=== PATIENT | male | born 1975 | race Caucasian/White ===

== ENCOUNTER 2017-10-27 15:16 | Observation (INO) | payer SELFPAY ==
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
[2017-10-27] MEDS ORDERED: Morphine 4 MG/ML Carpuject ONE (16:07)
[2017-10-27] MEDS ORDERED: Adacel (T-DAP) 0.5 ML VIAL ONE (16:07)
[2017-10-27] MEDS ORDERED: Ondansetron HCl/PF 4 MG/2 ML Vial ONE (16:07)
[2017-10-27 16:17] LABS: #Eosinphils 0.3 thou/uL (0.0-0.7); #Lymphocytes 1.4 thou/uL (1.20-3.40); #Monocytes 0.5 thou/uL (0.11-0.59); #Neutrophils 6.1 thou/uL (1.40-6.50); %Basophils 0.6 % (0.0-1.0); %Eosinophils 3.6 % (0.0-10.0); %Lymphocytes 16.6 % (21.0-51.0); %Monocytes 6.1 % (0.0-10.0); %Neutrophils 73.2 % (42.0-75.0); Hemoglobin 14.3 g/dL (14.0-18.0); Mean Corpuscular HGB CONC 32.9 g/dL (32.0-36.0); Mean Corpuscular Hemoglobin 30.3 pg (27.0-31.0); Mean Corpuscular Volume 91.9 fl (80.0-94.0); Mean Platelet Volume 8.5 fL (7.4-10.4); Platelet Count 207 thou/uL (130-400); RBC Distribution Width 11.9 % (11.5-14.5); Red Blood Cell (RBC) Count 4.71 mill/uL (4.70-6.10); White Blood Cell (WBC) Count 8.4 thou/uL (4.8-10.8)
[2017-10-27 16:20] LABS: Actual Bicarbonate (HCO3a) 24.7 mEq/L (22-26); Base Excess (BEa) 0.1 mEq/L (0 (+/-) 2.5); Hematocrit-ABG 40.9 % (42.0-52.0); Hemoglobin (Hb) 14.1 g/dL (14.0-18.0); pH, Arterial 7.41 (7.35-7.45)
[2017-10-27 16:21] LABS: Analyzer IN Cardio ER; Calcium, Ionized 1.2 mmol/L (1.12-1.30); Puncture Site RRA
[2017-10-27 16:34] LABS: Anion Gap 14 mmol/L (10-20); BUN (Urea Nitrogen) 9 mg/dL (8.9-20.6); Calc. Creatinine Clearance 0 mL/min (70-130); Calcium 8.5 mg/dL (7.8-10.44); Carbon Dioxide 23 mmol/L (22-29); Chloride 108 mmol/L (98-107); Estimated GFR-MDRD 84; Glucose 83 mg/dL (70-105); Sodium 141 mmol/L (136-145)
[2017-10-27] MEDS ORDERED: hydrALAZINE 20 MG/ML VIAL SLOW IVP PRN (18:09)
[2017-10-27] MEDS ORDERED: Ondansetron ODT 4 MG TAB PO PRN (18:09)
[2017-10-27] MEDS ORDERED: traMADol HCl 50 MG TAB PO PRN ×2 (18:09)
[2017-10-27] MEDS ORDERED: Dextrose 5% in Water 1,000 ML IV PRN (18:09)
[2017-10-27] MEDS ORDERED: Cyclobenzaprine 10 MG TAB PO PRN (18:09)
[2017-10-27] MEDS ORDERED: Ondansetron HCl/PF 4 MG/2 ML Vial IVP PRN (18:09)
[2017-10-27] MEDS ORDERED: Promethazine HCl 25 MG/ML VIAL IM PRN ×2 (18:09)
[2017-10-27] MEDS ORDERED: Dextrose 50% Abboject 50 ML SYRINGE SLOW IVP PRN (18:09)
[2017-10-27 19:23] VITALS: BMI 28.6
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
[2017-10-27] MEDS: Acetaminophen 325 MG TAB PO SCH (21:14)
[2017-10-27] MEDS: Ibuprofen 800 MG TAB PO SCH (21:15)
[2017-10-27] MEDS: Famotidine 20 MG TAB PO SCH (21:15)
[2017-10-27] MEDS: Silver Sulfadiazine 1% Cream 50 GM JAR TOP SCH (21:16)
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
[2017-10-28] MEDS: Acetaminophen 325 MG TAB PO SCH ×3 (00:23→09:23)
[2017-10-28 04:28] VITALS: TEMP 97.9
[2017-10-28] MEDS: Ibuprofen 800 MG TAB PO SCH (05:16)
[2017-10-28 08:51] VITALS: BP 89/63
[2017-10-28] MEDS ORDERED: FLU VACC QS2017-18 36 mo. & older 0.5 ML SYRINGE IM ONE (09:00)
[2017-10-28] MEDS ORDERED: Bacitracin Zinc Ointment 30 gm TUBE TOP SCH (09:00)
[2017-10-28] MEDS: Silver Sulfadiazine 1% Cream 50 GM JAR TOP SCH (09:23)
[2017-10-28] MEDS: Famotidine 20 MG TAB PO SCH (09:23)
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
== END 2017-10-28 11:29 | disposition home or self-care (01) ==
LOC: ERS 15:16 → SURG A 16:33
PROVIDERS: ADMIT Surgery; ATTEND Surgery
DX: T23.022A Burn of unspecified degree of single left finger (nail) except thumb, initial encounter (principal); T31.0 Burns involving less than 10% of body surface; F17.210 Nicotine dependence, cigarettes, uncomplicated; Z90.89 Acquired absence of other organs; Z98.890 Other specified postprocedural states; X08.8XXA Exposure to other specified smoke, fire and flames, initial encounter
CPT/HCPCS: 71045; 80048; 82375; 82805; 85025; 90471; 90682; 90715; 94640; 96361; 96374; 96375; G0008; G0378; J2270; J2405; J7620; Q2036

== ENCOUNTER 2018-06-19 07:28 | Emergency (ER) | payer SELFPAY ==
[2018-06-19 08:34] LABS: #Basophils 0.1 thou/uL (0.0-0.2); #Eosinphils 0.3 thou/uL (0.0-0.7); #Lymphocytes 1.4 thou/uL (1.20-3.40); #Monocytes 0.4 thou/uL (0.11-0.59); %Eosinophils 5.4 % (0.0-10.0); %Lymphocytes 22.6 % (21.0-51.0); %Neutrophils 64.9 % (42.0-75.0); Mean Corpuscular HGB CONC 33.7 g/dL (32.0-36.0); Mean Corpuscular Hemoglobin 31.2 pg (27.0-31.0); Mean Corpuscular Volume 92.8 fL (78.0-98.0); Platelet Count 187 thou/uL (130-400); RBC Distribution Width 11.8 % (11.5-14.5); Red Blood Cell (RBC) Count 5.12 mill/uL (4.70-6.10); White Blood Cell (WBC) Count 6.1 thou/uL (4.8-10.8)
[2018-06-19 08:46] LABS: Albumin 3.8 g/dL (3.5-5.0); Anion Gap 10 mmol/L (10-20); BUN (Urea Nitrogen) 13 mg/dL (8.9-20.6); Bilirubin, Total 0.3 mg/dL (0.2-1.2); Calc. Creatinine Clearance 0 mL/min (70-130); Calcium 8.5 mg/dL (7.8-10.44); Carbon Dioxide 24 mmol/L (22-29); Chloride 107 mmol/L (98-107); Estimated GFR-MDRD 87; Globulin 2.8 g/dL (2.4-3.5); Glucose 109 mg/dL (70-105); Protein, Total 6.6 g/dL (6.0-8.3); Sodium 137 mmol/L (136-145)
[2018-06-19 08:47] LABS: ALT (SGPT) 25 U/L (8-55); AST (SGOT) 19 U/L (5-34); Alkaline Phosphatase 65 U/L (40-150)
[2018-06-19] MEDS ORDERED: Ketorolac Tromethamine 30 MG/ML VIAL ONE (08:50)
[2018-06-19] MEDS ORDERED: Ondansetron HCl/PF 4 MG/2 ML Vial ONE (08:50)
[2018-06-19 08:52] LABS: Bilirubin Negative (Negative); Blood, Urine Negative (Negative); Clarity CLEAR (Clear); Glucose, Urine (Dipstick) Negative (Negative); Leukocyte Negative (Negative); Nitrite Negative (Negative); Protein, Urine (Dipstick) Negative (Neg-Trace); Specific Gravity, Urine 1.019 (1.002-1.036); Urobilinogen 0.2 mg/dL (0.2-1.0); pH, Urine 7.5 (5.0-9.0)
[2018-06-19] MEDS ORDERED: Mag-Al 1200 mg/1200 mg/30 ML UDCUP ONE (09:48)
[2018-06-19] MEDS ORDERED: Lidocaine Viscous Sol 2% 15 ml UD Cup ONE (09:48)
== END 2018-06-19 10:30 | disposition home or self-care (01) ==
LOC: ERS 07:28
DX: K29.70 Gastritis, unspecified, without bleeding (principal); Z86.718 Personal history of other venous thrombosis and embolism; K21.9 Gastro-esophageal reflux disease without esophagitis; F32.9 Major depressive disorder, single episode, unspecified; F17.210 Nicotine dependence, cigarettes, uncomplicated
CPT/HCPCS: 80053; 81003; 85025; 96361; 96374; 96375; J1885; J2405

== ENCOUNTER 2018-06-29 07:07 | Emergency (ER) | payer SELFPAY ==
[2018-06-29 07:38] LABS: #Eosinphils 0.5 thou/uL (0.0-0.7); #Lymphocytes 1.7 thou/uL (1.20-3.40); #Monocytes 0.4 thou/uL (0.11-0.59); #Neutrophils 3.4 thou/uL (1.40-6.50); %Basophils 0.7 % (0.0-1.0); %Eosinophils 8.4 % (0.0-10.0); %Lymphocytes 28.6 % (21.0-51.0); %Neutrophils 55.3 % (42.0-75.0); Hemoglobin 15.7 g/dL (14.0-18.0); Mean Corpuscular HGB CONC 34.4 g/dL (32.0-36.0); Mean Corpuscular Hemoglobin 31.6 pg (27.0-31.0); Mean Corpuscular Volume 91.7 fL (78.0-98.0); Mean Platelet Volume 8.4 fL (7.4-10.4); Platelet Count 229 thou/uL (130-400); RBC Distribution Width 11.6 % (11.5-14.5); Red Blood Cell (RBC) Count 4.96 mill/uL (4.70-6.10); White Blood Cell (WBC) Count 6.1 thou/uL (4.8-10.8)
[2018-06-29 07:58] LABS: ALT (SGPT) 25 U/L (8-55); AST (SGOT) 23 U/L (5-34); Albumin 3.7 g/dL (3.5-5.0); Alkaline Phosphatase 79 U/L (40-150); Anion Gap 13 mmol/L (10-20); BUN (Urea Nitrogen) 15 mg/dL (8.9-20.6); Bilirubin, Total 0.2 mg/dL (0.2-1.2); Calc. Creatinine Clearance 0 mL/min (70-130); Calcium 9.1 mg/dL (7.8-10.44); Carbon Dioxide 22 mmol/L (22-29); Chloride 107 mmol/L (98-107); Estimated GFR-MDRD Greater than 90; Globulin 3.9 g/dL (2.4-3.5); Glucose 136 mg/dL (70-105); Protein, Total 7.6 g/dL (6.0-8.3); Sodium 138 mmol/L (136-145)
[2018-06-29 08:35] LABS: Bilirubin Negative (Negative); Blood, Urine Negative (Negative); Clarity CLEAR (Clear); Glucose, Urine (Dipstick) Negative (Negative); Leukocyte Negative (Negative); Nitrite Negative (Negative); Protein, Urine (Dipstick) Negative (Neg-Trace); Specific Gravity, Urine 1.011 (1.002-1.036); Urobilinogen 0.2 mg/dL (0.2-1.0)
== END 2018-06-29 10:03 | disposition home or self-care (01) ==
LOC: ERS 07:07
DX: K29.70 Gastritis, unspecified, without bleeding (principal); K21.9 Gastro-esophageal reflux disease without esophagitis; F32.9 Major depressive disorder, single episode, unspecified; R73.03 Prediabetes; F17.210 Nicotine dependence, cigarettes, uncomplicated; Z79.899 Other long term (current) drug therapy
CPT/HCPCS: 36415; 80053; 81003; 82274; 85025; 99284

== ENCOUNTER 2018-10-13 07:07 | Emergency (ER) | payer SELFPAY ==
[2018-10-13 07:45] LABS: #Eosinphils 0.3 thou/uL (0.0-0.7); #Lymphocytes 2.2 thou/uL (1.20-3.40); #Monocytes 0.7 thou/uL (0.11-0.59); #Neutrophils 7.7 thou/uL (1.40-6.50); %Basophils 0.4 % (0.0-1.0); %Eosinophils 2.9 % (0.0-10.0); %Lymphocytes 19.8 % (21.0-51.0); %Monocytes 6.7 % (0.0-10.0); %Neutrophils 70.3 % (42.0-75.0); Hemoglobin 15.1 g/dL (14.0-18.0); Mean Corpuscular HGB CONC 35.6 g/dL (32.0-36.0); Mean Corpuscular Hemoglobin 31.3 pg (27.0-31.0); Mean Corpuscular Volume 87.8 fL (78.0-98.0); Mean Platelet Volume 8.3 fL (7.4-10.4); Platelet Count 199 thou/uL (130-400); RBC Distribution Width 11.5 % (11.5-14.5); Red Blood Cell (RBC) Count 4.84 mill/uL (4.70-6.10)
--- NOTE | 2018-10-13 07:52 | RAD ---
FRONTAL RADIOGRAPH CHEST: Date: 10-13-18 Comparison: 10-27-17 History: Atrial fibrillation and reflux. Shortness of breath, chest pain. FINDINGS: No pneumothorax, pleural fluid, focal consolidation or alveolar edema. Heart and mediastinal contours appear grossly unremarkable. IMPRESSION: No acute findings. POS: [facility]
[2018-10-13 08:02] LABS: ALT (SGPT) 23 U/L (8-55); AST (SGOT) 17 U/L (5-34); Albumin 3.9 g/dL (3.5-5.0); Alkaline Phosphatase 74 U/L (40-150); Anion Gap 13 mmol/L (10-20); BUN (Urea Nitrogen) 12 mg/dL (8.9-20.6); Bilirubin, Total 0.9 mg/dL (0.2-1.2); CK (CPK) 143 U/L (30-200); Calc. Creatinine Clearance 0 mL/min (70-130); Calcium 9.2 mg/dL (7.8-10.44); Carbon Dioxide 23 mmol/L (22-29); Chloride 103 mmol/L (98-107); Estimated GFR-MDRD 87; Globulin 3.2 g/dL (2.4-3.5); Glucose 112 mg/dL (70-105); Lipase 22 U/L (8-78); Protein, Total 7.1 g/dL (6.0-8.3); Sodium 136 mmol/L (136-145)
== END 2018-10-13 08:37 | disposition home or self-care (01) ==
LOC: ERS 07:07
DX: R07.89 Other chest pain (principal); R05 Cough; E87.6 Hypokalemia; K21.9 Gastro-esophageal reflux disease without esophagitis; F32.9 Major depressive disorder, single episode, unspecified; F17.210 Nicotine dependence, cigarettes, uncomplicated; E03.9 Hypothyroidism, unspecified; I48.91 Unspecified atrial fibrillation; Z86.718 Personal history of other venous thrombosis and embolism
CPT/HCPCS: 36415; 71045; 80053; 82550; 83690; 83880; 84484; 85025; 85379; 93005

== ENCOUNTER 2018-10-20 19:01 | Emergency (ER) | payer SELFPAY ==
[2018-10-20 19:48] LABS: #Basophils 0.1 thou/uL (0.0-0.2); #Eosinphils 0.2 thou/uL (0.0-0.7); #Lymphocytes 2.1 thou/uL (1.20-3.40); #Monocytes 0.4 thou/uL (0.11-0.59); #Neutrophils 4.3 thou/uL (1.40-6.50); %Basophils 0.9 % (0.0-1.0); %Eosinophils 2.2 % (0.0-10.0); %Lymphocytes 29.6 % (21.0-51.0); %Monocytes 5.4 % (0.0-10.0); %Neutrophils 61.9 % (42.0-75.0); Mean Corpuscular HGB CONC 34.4 g/dL (32.0-36.0); Mean Corpuscular Hemoglobin 30.7 pg (27.0-31.0); Mean Corpuscular Volume 89.2 fL (78.0-98.0); Mean Platelet Volume 7.9 fL (7.4-10.4); Platelet Count 227 thou/uL (130-400); RBC Distribution Width 11.4 % (11.5-14.5); Red Blood Cell (RBC) Count 4.89 mill/uL (4.70-6.10)
[2018-10-20 20:11] LABS: ALT (SGPT) 37 U/L (8-55); AST (SGOT) 18 U/L (5-34); Albumin 3.9 g/dL (3.5-5.0); Alkaline Phosphatase 73 U/L (40-150); Anion Gap 12 mmol/L (10-20); BUN (Urea Nitrogen) 7 mg/dL (8.9-20.6); Bilirubin, Total 0.4 mg/dL (0.2-1.2); CK (CPK) 43 U/L (30-200); Calc. Creatinine Clearance 0 mL/min (70-130); Carbon Dioxide 26 mmol/L (22-29); Chloride 106 mmol/L (98-107); Estimated GFR-MDRD Greater than 90; Globulin 3.2 g/dL (2.4-3.5); Glucose 83 mg/dL (70-105); Lipase 32 U/L (8-78); Potassium 4.7 mmol/L (3.5-5.1); Protein, Total 7.1 g/dL (6.0-8.3); Sodium 139 mmol/L (136-145)
[2018-10-20 20:46] LABS: Bilirubin Negative (Negative); Blood, Urine Negative (Negative); Clarity CLEAR (Clear); Glucose, Urine (Dipstick) Negative (Negative); Leukocyte Negative (Negative); Nitrite Negative (Negative); Protein, Urine (Dipstick) Negative (Neg-Trace)
[2018-10-20] MEDS ORDERED: Acetaminophen 500 MG TAB ONE (21:13)
--- NOTE | 2018-10-24 10:48 | EKG ---
Test Reason : Blood Pressure : / mmHG Vent. Rate : 074 BPM Atrial Rate : 074 BPM P-R Int : 124 ms QRS Dur : 082 ms QT Int : 392 ms P-R-T Axes : 028 054 035 degrees QTc Int : 435 ms Normal sinus rhythm with sinus arrhythmia Normal ECG Confirmed by STU CLARKE DO ([id number]), sound editor LAUREN FERGUSON ([id number]) on 10/24/2018 10:47:52 AM Referred By: Confirmed By:STU CLARKE DO
== END 2018-10-20 21:20 | disposition home or self-care (01) ==
LOC: ERS 19:01
DX: R11.2 Nausea with vomiting, unspecified (principal); E87.6 Hypokalemia; K21.9 Gastro-esophageal reflux disease without esophagitis; R73.03 Prediabetes; F32.9 Major depressive disorder, single episode, unspecified; F17.210 Nicotine dependence, cigarettes, uncomplicated; Z79.899 Other long term (current) drug therapy
CPT/HCPCS: 36415; 80053; 81003; 82550; 83690; 84134; 85025; 93005; 94760

== ENCOUNTER 2018-11-21 12:11 | Emergency (ER) | payer SELFPAY ==
[2018-11-21] MEDS ORDERED: Ondansetron ODT 4 MG TAB ONE (12:31)
[2018-11-21] MEDS ORDERED: Ketorolac Tromethamine 30 MG/ML VIAL ONE (12:31)
[2018-11-21] MEDS ORDERED: Dexamethasone 4 mg/ml Vial ONE (13:25)
== END 2018-11-21 13:44 | disposition home or self-care (01) ==
LOC: ERS 12:11
DX: K02.9 Dental caries, unspecified (principal); K04.7 Periapical abscess without sinus; F32.9 Major depressive disorder, single episode, unspecified; E03.9 Hypothyroidism, unspecified; K21.9 Gastro-esophageal reflux disease without esophagitis; Z86.718 Personal history of other venous thrombosis and embolism
CPT/HCPCS: 96372; J1100; J1885; Q0162

== ENCOUNTER 2019-07-20 08:01 | Emergency (ER) | payer SELFPAY ==
[2019-07-20 08:56] LABS: #Eosinphils 0.3 thou/uL (0.0-0.7); #Lymphocytes 2.1 thou/uL (1.20-3.40); #Monocytes 0.7 thou/uL (0.11-0.59); #Neutrophils 5.1 thou/uL (1.40-6.50); %Basophils 0.3 % (0.0-1.0); %Eosinophils 4.2 % (0.0-10.0); %Lymphocytes 25.6 % (21.0-51.0); %Monocytes 8.6 % (0.0-10.0); %Neutrophils 61.4 % (42.0-75.0); Hemoglobin 14.2 g/dL (14.0-18.0); Mean Corpuscular HGB CONC 34.2 g/dL (32.0-36.0); Mean Corpuscular Volume 90.5 fL (78.0-98.0); Mean Platelet Volume 8.5 fL (7.4-10.4); Platelet Count 175 thou/uL (130-400); RBC Distribution Width 11.3 % (11.5-14.5); Red Blood Cell (RBC) Count 4.58 mill/uL (4.70-6.10); White Blood Cell (WBC) Count 8.3 thou/uL (4.8-10.8)
--- NOTE | 2019-07-20 09:01 | RAD ---
EXAM: Chest 2 views: HISTORY: Right foot numbness for one month COMPARISON: 03/04/2015 FINDINGS: There is a normal-sized cardiomediastinal silhouette. There is no evidence of consolidation, mass, or pleural effusion. The bones are unremarkable. IMPRESSION: No evidence of acute cardiopulmonary disease
[2019-07-20 09:18] LABS: ALT (SGPT) 18 U/L (8-55); AST (SGOT) 19 U/L (5-34); Albumin 3.4 g/dL (3.5-5.0); Alkaline Phosphatase 70 U/L (40-110); Anion Gap 10 mmol/L (10-20); BUN (Urea Nitrogen) 8 mg/dL (8.9-20.6); Bilirubin, Total 0.2 mg/dL (0.2-1.2); Calc. Creatinine Clearance 0 mL/min (70-130); Calcium 8.5 mg/dL (7.8-10.44); Carbon Dioxide 27 mmol/L (22-29); Chloride 104 mmol/L (98-107); Estimated GFR-MDRD Greater than 90; Globulin 2.9 g/dL (2.4-3.5); Glucose 99 mg/dL (70-105); Potassium 4.2 mmol/L (3.5-5.1); Protein, Total 6.3 g/dL (6.0-8.3); Sodium 137 mmol/L (136-145)
== END 2019-07-20 09:44 | disposition home or self-care (01) ==
LOC: ERS 08:01
DX: R05 Cough (principal); F41.9 Anxiety disorder, unspecified; F32.9 Major depressive disorder, single episode, unspecified; F17.210 Nicotine dependence, cigarettes, uncomplicated; Z86.711 Personal history of pulmonary embolism
CPT/HCPCS: 36415; 71046; 80053; 85025

== ENCOUNTER 2019-07-24 20:04 | Emergency (ER) | payer SELFPAY ==
[2019-07-24 20:38] LABS: #Eosinphils 0.2 thou/uL (0.0-0.7); #Lymphocytes 1.3 thou/uL (1.20-3.40); #Monocytes 0.6 thou/uL (0.11-0.59); #Neutrophils 9.6 thou/uL (1.40-6.50); %Basophils 0.3 % (0.0-1.0); %Eosinophils 1.6 % (0.0-10.0); %Lymphocytes 10.9 % (21.0-51.0); %Monocytes 4.8 % (0.0-10.0); %Neutrophils 82.4 % (42.0-75.0); Hemoglobin 14.6 g/dL (14.0-18.0); Mean Corpuscular HGB CONC 34.5 g/dL (32.0-36.0); Mean Corpuscular Hemoglobin 31.2 pg (27.0-31.0); Mean Corpuscular Volume 90.4 fL (78.0-98.0); Mean Platelet Volume 7.7 fL (7.4-10.4); Platelet Count 235 thou/uL (130-400); RBC Distribution Width 11.3 % (11.5-14.5); Red Blood Cell (RBC) Count 4.68 mill/uL (4.70-6.10); White Blood Cell (WBC) Count 11.6 thou/uL (4.8-10.8)
[2019-07-24 21:00] LABS: ALT (SGPT) 19 U/L (8-55); AST (SGOT) 16 U/L (5-34); Acetaminophen Less than 6.0 mcg/mL (10.0-30.0); Albumin 3.9 g/dL (3.5-5.0); Alcohol Less than 10 mg/dL (Less than 10); Alkaline Phosphatase 85 U/L (40-110); Anion Gap 10 mmol/L (10-20); BUN (Urea Nitrogen) 11 mg/dL (8.9-20.6); Bilirubin, Total 0.4 mg/dL (0.2-1.2); Calc. Creatinine Clearance 0 mL/min (70-130); Calcium 8.8 mg/dL (7.8-10.44); Carbon Dioxide 25 mmol/L (22-29); Chloride 104 mmol/L (98-107); Estimated GFR-MDRD 80; Globulin 3.2 g/dL (2.4-3.5); Glucose 99 mg/dL (70-105); Potassium 4.4 mmol/L (3.5-5.1); Protein, Total 7.1 g/dL (6.0-8.3); Salicylate Less than 8.0 mg/dL (15.0-30.0); Sodium 135 mmol/L (136-145)
[2019-07-24 21:57] LABS: Amphetamine Not Detected (NotDetected); Barbiturates Screen Not Detected (NotDetected); Benzodiazepine Screen Not Detected (NotDetected); Cocaine Metabolite Screen Not Detected (NotDetected); Medtox Control Line Valid? VALID (VALID); Medtox Reader # READER 1; Methadone Not Detected (NotDetected); Methamphetamine Not Detected (NotDetected); Opiate Screen Not Detected (NotDetected); Oxycodone Screen Not Detected (NotDetected); Phencyclidine (PCP) Not Detected (NotDetected); THC/Cannabinoid Screen Detected (NotDetected); Tricyclic Screen Not Detected (NotDetected)
== END 2019-07-24 22:30 | disposition home or self-care (01) ==
LOC: ERS 20:04
DX: F12.929 Cannabis use, unspecified with intoxication, unspecified (principal); I48.91 Unspecified atrial fibrillation; F41.9 Anxiety disorder, unspecified; F32.9 Major depressive disorder, single episode, unspecified; F17.210 Nicotine dependence, cigarettes, uncomplicated
CPT/HCPCS: 36415; 80053; 80306; 80307; 85025; 94760; 96360; 96361

== ENCOUNTER 2021-02-05 20:03 | Emergency (ER) | payer SELFPAY ==
[2021-02-05] MEDS ORDERED: Acetaminophen 500 MG TAB ONE (23:31)
[2021-02-05] MEDS ORDERED: Ibuprofen 800 MG TAB ONE (23:31)
== END 2021-02-06 00:26 | disposition home or self-care (01) ==
LOC: ERS 20:03
DX: L89.319 Pressure ulcer of right buttock, unspecified stage (principal); L03.317 Cellulitis of buttock; I48.91 Unspecified atrial fibrillation; E03.9 Hypothyroidism, unspecified; Z87.891 Personal history of nicotine dependence
CPT/HCPCS: 87070; 87077; 87186; 87205; 99283

== ENCOUNTER 2021-04-04 02:35 | Inpatient (IN) | payer SELFPAY ==
[2021-04-04 03:02] LABS: #Eosinphils 0.4 thou/uL (0.0-0.7); #Lymphocytes 1.7 thou/uL (1.20-3.40); #Monocytes 0.4 thou/uL (0.11-0.59); #Neutrophils 4.6 thou/uL (1.40-6.50); %Basophils 0.6 % (0.0-1.0); %Eosinophils 5.5 % (0.0-10.0); %Lymphocytes 23.7 % (21.0-51.0); %Monocytes 5.3 % (0.0-10.0); %Neutrophils 64.8 % (42.0-75.0); Mean Corpuscular Volume 93.9 fL (78.0-98.0); Mean Platelet Volume 7.9 fL (7.4-10.4); Platelet Count 237 thou/uL (130-400); RBC Distribution Width 11.9 % (11.5-14.5); Red Blood Cell (RBC) Count 4.71 mill/uL (4.70-6.10)
[2021-04-04 03:11] LABS: Bilirubin Negative (Negative); Blood, Urine Negative (Negative); Clarity Clear (Clear); Glucose, Urine (Dipstick) Normal (Negative); Ketone, Urine Trace mg/dL (Negative); Leukocyte Negative Leu/uL (Negative); Nitrite Negative (Negative); Protein, Urine (Dipstick) Negative (Neg-Trace); Specific Gravity, Urine 1.016 (1.002-1.036); Urobilinogen Normal mg/dL (Less than 2)
[2021-04-04 03:21] LABS: Acetaminophen Less than 6.0 mcg/mL (10.0-30.0); Alcohol Less than 10 mg/dL (Less than 10); Salicylate Less than 8.0 mg/dL (15.0-30.0)
[2021-04-04 03:21] LABS: Amphetamine Not Detected (NotDetected); Barbiturates Screen Not Detected (NotDetected); Benzodiazepine Screen Not Detected (NotDetected); Cocaine Metabolite Screen Not Detected (NotDetected); Medtox Control Line Valid? VALID (VALID); Medtox Reader # READER 4; Methadone Not Detected (NotDetected); Methamphetamine Not Detected (NotDetected); Opiate Screen Not Detected (NotDetected); Oxycodone Screen Not Detected (NotDetected); Phencyclidine (PCP) Not Detected (NotDetected); THC/Cannabinoid Screen Not Detected (NotDetected); Tricyclic Screen Not Detected (NotDetected)
[2021-04-04 03:30] LABS: ALT (SGPT) 20 U/L (8-55); AST (SGOT) 23 U/L (5-34); Albumin 4.2 g/dL (3.5-5.0); Alkaline Phosphatase 81 U/L (40-110); Anion Gap 28 mmol/L (10-20); BUN (Urea Nitrogen) 10 mg/dL (8.9-20.6); Bilirubin, Total 0.3 mg/dL (0.2-1.2); Calc. Creatinine Clearance 0 mL/min (70-130); Calcium 8.7 mg/dL (7.8-10.44); Chloride 106 mmol/L (98-107); Globulin 3.6 g/dL (2.4-3.5); Glucose 94 mg/dL (70-105); Potassium 4.5 mmol/L (3.5-5.1); Protein, Total 7.8 g/dL (6.0-8.3); Sodium 138 mmol/L (136-145)
[2021-04-04] MEDS ORDERED: Fomepizole 1.2 GM in Sodium Chloride 0.9% 100 ML IVPB SCH (03:30)
[2021-04-04 03:32] LABS: Carbon Dioxide 9 mmol/L (22-29)
[2021-04-04] MEDS ORDERED: Ketamine 50 MG/ML (10ML VIAL) ONE (03:49)
[2021-04-04] MEDS ORDERED: Lorazepam 2 MG/ML VIAL ONE (05:12)
[2021-04-04 05:39] LABS: SARS-CoV-2 NAA Rapid Test Not Detected (NotDetected)
[2021-04-04 06:12] LABS: Lactic Acid 1.6 mmol/L (0.5-2.2)
[2021-04-04] MEDS ORDERED: Heparin 10,000 UNITS/ 10 ML VIAL ONE (08:51)
[2021-04-04] MEDS ORDERED: Levothyroxine Sodium 100 MCG TAB PO SCH (10:00)
[2021-04-04] MEDS ORDERED: SODIUM CHLORIDE 0.9% IVPB SCH (10:00)
[2021-04-04] MEDS ORDERED: FOMEPIZOLE IVPB SCH (10:00)
[2021-04-04] MEDS: Sodium Chloride 0.9% 1,000 ML IV SCH ×3 (10:03→22:00)
[2021-04-04] MEDS: Thiamine HCl 200 MG/2 ML VIAL SLOW IVP SCH (10:07)
[2021-04-04 14:28] LABS: Hep B Core Total Ab Non-Reactive (NonReactive); Hep B Core Total Index 0.16 S/CO (0-0.79); Hep B Surf Ag Non-Reactive S/CO (NonReactive); Hep C IgG Ab Non-Reactive (NonReactive)
[2021-04-04 14:30] LABS: HBSAB Concentration 12.93 mIU/mL; Hep B Surf AB Reactive (NonReactive)
[2021-04-04 16:48] LABS: Anion Gap 19 mmol/L (10-20); BUN (Urea Nitrogen) 6 mg/dL (8.9-20.6); Calc. Creatinine Clearance 141 mL/min (70-130); Calcium 8.4 mg/dL (7.8-10.44); Carbon Dioxide 20 mmol/L (22-29); Chloride 107 mmol/L (98-107); Glucose 72 mg/dL (70-105); Potassium 3.3 mmol/L (3.5-5.1); Sodium 143 mmol/L (136-145)
[2021-04-04 16:58] LABS: Actual Bicarbonate (HCO3a) 20.4 mEq/L (22-28); Base Excess (BEa) -3.4 mEq/L (-2.0 to +3.0); CO2 Tension 33.4 mmHg (35.0-45.0); Calcium, Ionized (arterial) 1.11 mmol/L (1.12-1.30); Carboxyhemoglobin (COHb) 0.9 gm% (0.0-3.0); Hemoglobin (Hb) 15.8 g/dL (14.0-18.0); O2 Tension (PaO2), arterial 76.6 mmHg (80.0-100.0); Potassium - ABG Lab 3.35 mmol/L (3.70-5.30)
[2021-04-04 16:59] LABS: Puncture Site RRA
[2021-04-04] MEDS: SODIUM CHLORIDE 0.9% IVPB SCH (17:36)
[2021-04-04] MEDS: FOMEPIZOLE IVPB SCH (17:36)
[2021-04-04] MEDS: Enoxaparin Sodium 60 MG/0.6 ML SYRINGE SC SCH (20:13)
[2021-04-04] MEDS: Acetaminophen 325 MG TAB PO PRN (20:14)
[2021-04-05] MEDS: FOMEPIZOLE IVPB SCH ×2 (04:08→16:10)
[2021-04-05] MEDS: SODIUM CHLORIDE 0.9% IVPB SCH ×2 (04:08→16:10)
[2021-04-05 04:12] LABS: Anion Gap 13 mmol/L (10-20); BUN (Urea Nitrogen) 10 mg/dL (8.9-20.6); Calc. Creatinine Clearance 131 mL/min (70-130); Calcium 7.9 mg/dL (7.8-10.44); Carbon Dioxide 21 mmol/L (22-29); Chloride 106 mmol/L (98-107); Glucose 117 mg/dL (70-105); Potassium 3.4 mmol/L (3.5-5.1); Sodium 137 mmol/L (136-145)
[2021-04-05] MEDS: Sodium Chloride 0.9% 1,000 ML IV SCH ×3 (05:20→18:49)
[2021-04-05] MEDS: Levothyroxine Sodium 100 MCG TAB PO SCH (05:26)
[2021-04-05 07:50] LABS: #Eosinphils 0.3 thou/uL (0.0-0.7); #Lymphocytes 1.9 thou/uL (1.20-3.40); #Monocytes 0.6 thou/uL (0.11-0.59); #Neutrophils 3.4 thou/uL (1.40-6.50); %Basophils 0.5 % (0.0-1.0); %Eosinophils 5.6 % (0.0-10.0); %Lymphocytes 30.3 % (21.0-51.0); %Monocytes 9.1 % (0.0-10.0); %Neutrophils 54.5 % (42.0-75.0); Hemoglobin 13.3 g/dL (14.0-18.0); MDiff Complete? YES; Mean Corpuscular HGB CONC 33.9 g/dL (32.0-36.0); Mean Corpuscular Hemoglobin 31.8 pg (27.0-31.0); Mean Corpuscular Volume 93.8 fL (78.0-98.0); Mean Platelet Volume 7.5 fL (7.4-10.4); Platelet Count 110 thou/uL (130-400); Platelet Morphology Comment Appears Decreased; RBC Morphology Normal; Red Blood Cell (RBC) Count 4.18 mill/uL (4.70-6.10); Small Platelets SLIGHT; White Blood Cell (WBC) Count 6.2 thou/uL (4.8-10.8)
[2021-04-05] MEDS ORDERED: Heparin 10,000 UNITS/ 10 ML VIAL ONE (08:37)
[2021-04-05] MEDS ORDERED: Heparin 5,000 UNITS/ML VIAL SC SCH (09:00)
[2021-04-05] MEDS: Thiamine HCl 200 MG/2 ML VIAL SLOW IVP SCH (09:15)
[2021-04-05] MEDS: Enoxaparin Sodium 60 MG/0.6 ML SYRINGE SC SCH ×2 (09:15→20:43)
[2021-04-05] MEDS ORDERED: Nicotine 14 MG PATCH TOP SCH (15:45)
[2021-04-05] MEDS: Acetaminophen 325 MG TAB PO PRN (17:31)
[2021-04-05] MEDS: Melatonin 3 MG TAB PO PRN (20:43)
[2021-04-06] MEDS: Sodium Chloride 0.9% 1,000 ML IV SCH ×4 (00:14→21:06)
[2021-04-06] MEDS: FOMEPIZOLE IVPB SCH (05:11)
[2021-04-06] MEDS: SODIUM CHLORIDE 0.9% IVPB SCH (05:11)
[2021-04-06] MEDS: Levothyroxine Sodium 100 MCG TAB PO SCH (05:16)
[2021-04-06 06:18] VITALS: BMI 28.9
[2021-04-06 06:54] LABS: #Eosinphils 0.4 thou/uL (0.0-0.7); #Lymphocytes 1.7 thou/uL (1.20-3.40); #Monocytes 0.6 thou/uL (0.11-0.59); #Neutrophils 3.1 thou/uL (1.40-6.50); %Basophils 0.6 % (0.0-1.0); %Eosinophils 6.2 % (0.0-10.0); %Lymphocytes 28.9 % (21.0-51.0); %Neutrophils 54.2 % (42.0-75.0); Mean Corpuscular HGB CONC 34.6 g/dL (32.0-36.0); Mean Corpuscular Volume 92.4 fL (78.0-98.0); Mean Platelet Volume 7.7 fL (7.4-10.4); Platelet Count 77 thou/uL (130-400); RBC Distribution Width 11.9 % (11.5-14.5); Red Blood Cell (RBC) Count 4.07 mill/uL (4.70-6.10); White Blood Cell (WBC) Count 5.8 thou/uL (4.8-10.8)
[2021-04-06 07:04] LABS: Anion Gap 11 mmol/L (10-20); BUN (Urea Nitrogen) 7 mg/dL (8.9-20.6); Calc. Creatinine Clearance 141 mL/min (70-130); Calcium 8.3 mg/dL (7.8-10.44); Carbon Dioxide 25 mmol/L (22-29); Chloride 107 mmol/L (98-107); Glucose 109 mg/dL (70-105); Potassium 3.7 mmol/L (3.5-5.1); Sodium 139 mmol/L (136-145)
[2021-04-06] MEDS: Nicotine 14 MG PATCH TOP SCH (10:22)
[2021-04-06] MEDS: Thiamine HCl 200 MG/2 ML VIAL SLOW IVP SCH (10:23)
[2021-04-06] MEDS: Melatonin 3 MG TAB PO PRN (21:13)
[2021-04-07] MEDS: Sodium Chloride 0.9% 1,000 ML IV SCH ×2 (03:57→13:54)
[2021-04-07] MEDS: Levothyroxine Sodium 100 MCG TAB PO SCH (05:26)
[2021-04-07 06:43] LABS: #Eosinphils 0.5 thou/uL (0.0-0.7); #Lymphocytes 1.9 thou/uL (1.20-3.40); #Monocytes 0.5 thou/uL (0.11-0.59); #Neutrophils 3.9 thou/uL (1.40-6.50); %Basophils 0.4 % (0.0-1.0); %Eosinophils 6.8 % (0.0-10.0); %Lymphocytes 28.2 % (21.0-51.0); %Monocytes 7.4 % (0.0-10.0); %Neutrophils 57.2 % (42.0-75.0); Hemoglobin 13.5 g/dL (14.0-18.0); Mean Corpuscular HGB CONC 35.2 g/dL (32.0-36.0); Mean Corpuscular Hemoglobin 32.3 pg (27.0-31.0); Mean Corpuscular Volume 91.8 fL (78.0-98.0); Mean Platelet Volume 8.8 fL (7.4-10.4); Platelet Count 86 thou/uL (130-400); RBC Distribution Width 11.9 % (11.5-14.5); Red Blood Cell (RBC) Count 4.19 mill/uL (4.70-6.10); White Blood Cell (WBC) Count 6.8 thou/uL (4.8-10.8)
[2021-04-07 07:00] LABS: Anion Gap 11 mmol/L (10-20); BUN (Urea Nitrogen) 7 mg/dL (8.9-20.6); Calc. Creatinine Clearance 151 mL/min (70-130); Calcium 8.5 mg/dL (7.8-10.44); Carbon Dioxide 26 mmol/L (22-29); Chloride 105 mmol/L (98-107); Glucose 96 mg/dL (70-105); Potassium 3.7 mmol/L (3.5-5.1); Sodium 138 mmol/L (136-145)
[2021-04-07] MEDS: Nicotine 14 MG PATCH TOP SCH (08:28)
[2021-04-07] MEDS: Thiamine HCl 200 MG/2 ML VIAL SLOW IVP SCH (08:32)
[2021-04-07] MEDS ORDERED: Polyethylene Glycol 3350 17 GM Packet PER TUBE SCH (12:09)
[2021-04-07] MEDS ORDERED: Polyethylene Glycol 3350 17 GM Packet PO SCH (12:15)
[2021-04-07] MEDS ORDERED: Aquaphor 30 GM JAR TOP PRN (12:15)
[2021-04-07 15:34] VITALS: BP 114/71; TEMP 97.1
[2021-04-07 16:39] LABS: Free T4 (Free Thyroxine) 0.78 ng/dL (0.70-1.48)
[2021-04-08] MEDS ORDERED: Polyethylene Glycol 3350 17 GM Packet PO SCH (09:00)
== END 2021-04-07 18:35 | DRG 917 ==
LOC: ERS 02:35 → ERHOLD 04:07 → CCU 05:58 → T4-A 04-06 16:28
PROVIDERS: ADMIT Internal Medicine; ATTEND Internal Medicine
PROC: 06HY33Z Insertion of Infusion Device into Lower Vein, Percutaneous Approach (ICD-10-PCS; principal; 2021-04-04)
PROC: 5A1D70Z Performance of Urinary Filtration, Intermittent, Less than 6 Hours Per Day (ICD-10-PCS; 2021-04-04)
DX: T52.8X2A Toxic effect of other organic solvents, intentional self-harm, initial encounter (principal); G92 Toxic encephalopathy; N17.9 Acute kidney failure, unspecified; E87.2 Acidosis; I48.20 Chronic atrial fibrillation, unspecified; D64.9 Anemia, unspecified; E03.9 Hypothyroidism, unspecified; F32.9 Major depressive disorder, single episode, unspecified; F41.9 Anxiety disorder, unspecified; Z79.01 Long term (current) use of anticoagulants; Z79.890 Hormone replacement therapy; Z79.899 Other long term (current) drug therapy
CPT/HCPCS: 36415; 36600; 80048; 80053; 80306; 80307; 81003; 82693; 82805; 83605; 83930; 84439; 84443; 84481; 85025; 86704; 86706; 86803; 87340; 90935; 93005; G0257; J1451; J1642; J1644; J1650; J2060; J3411; J3490; U0002; U0005

== ENCOUNTER 2021-11-12 17:37 | Observation (INO) | payer SELFPAY ==
[2021-11-12 19:12] LABS: #Eosinphils 0.2 thou/uL (0.0-0.7); #Lymphocytes 2.1 thou/uL (1.20-3.40); #Monocytes 0.4 thou/uL (0.11-0.59); #Neutrophils 3.3 thou/uL (1.40-6.50); %Basophils 0.7 % (0.0-1.0); %Lymphocytes 34.1 % (21.0-51.0); %Monocytes 7.2 % (0.0-10.0); %Neutrophils 54.1 % (42.0-75.0); Hemoglobin 15.5 g/dL (14.0-18.0); Mean Corpuscular HGB CONC 34.9 g/dL (32.0-36.0); Mean Corpuscular Hemoglobin 30.7 pg (27.0-31.0); Mean Corpuscular Volume 87.9 fL (78.0-98.0); Mean Platelet Volume 8.6 fL (7.4-10.4); Platelet Count 152 thou/uL (130-400); RBC Distribution Width 12.1 % (11.5-14.5); Red Blood Cell (RBC) Count 5.06 mill/uL (4.70-6.10); White Blood Cell (WBC) Count 6.1 thou/uL (4.8-10.8)
[2021-11-12 19:36] LABS: ALT (SGPT) 15 U/L (8-55); AST (SGOT) 14 U/L (5-34); Albumin 4.1 g/dL (3.5-5.0); Alkaline Phosphatase 88 U/L (40-110); Anion Gap 11 mmol/L (10-20); BUN (Urea Nitrogen) 15 mg/dL (8.9-20.6); Bilirubin, Total 0.3 mg/dL (0.2-1.2); Calc. Creatinine Clearance 0 mL/min (70-130); Calcium 9.1 mg/dL (7.8-10.44); Carbon Dioxide 27 mmol/L (22-29); Chloride 104 mmol/L (98-107); Globulin 3.6 g/dL (2.4-3.5); Glucose 85 mg/dL (70-105); Potassium 4.4 mmol/L (3.5-5.1); Protein, Total 7.7 g/dL (6.0-8.3); Sodium 138 mmol/L (136-145)
[2021-11-12] MEDS ORDERED: Enoxaparin Sodium 80 MG/0.8 ML SYRINGE ONE (21:31)
[2021-11-13] MEDS ORDERED: Acetaminophen 325 MG TAB PO PRN (01:53)
[2021-11-13] MEDS ORDERED: Acetaminophen 325 MG TAB ONE (02:13)
[2021-11-13] MEDS ORDERED: Ondansetron PF 4 MG/2 ML Vial ONE (06:33)
[2021-11-13] MEDS ORDERED: Ondansetron PF 4 MG/2 ML Vial IVP PRN (07:09)
[2021-11-13] MEDS ORDERED: Ondansetron PF 4 MG/2 ML Vial IVP SCH (07:45)
[2021-11-13 10:32] VITALS: BP 127/98; TEMP 97.6
[2021-11-13 11:51] LABS: SARS-CoV-2 PCR by NAA Not Detected (NotDetected)
== END 2021-11-13 10:40 | disposition home or self-care (01) ==
LOC: ERS 17:37 → ERHOLD 21:48
PROVIDERS: ADMIT Internal Medicine; ATTEND Internal Medicine
DX: I82.411 Acute embolism and thrombosis of right femoral vein (principal); G62.9 Polyneuropathy, unspecified; E03.9 Hypothyroidism, unspecified; K21.9 Gastro-esophageal reflux disease without esophagitis; I48.91 Unspecified atrial fibrillation; Z86.711 Personal history of pulmonary embolism; Z87.891 Personal history of nicotine dependence; Z91.51 Personal history of suicidal behavior; Z79.01 Long term (current) use of anticoagulants; Z79.899 Other long term (current) drug therapy; Z20.822 Contact with and (suspected) exposure to COVID-19
CPT/HCPCS: 36415; 71275; 80053; 83880; 84484; 85025; 93005; 96372; G0378; J1650; J2405; U0003; U0005

== ENCOUNTER 2022-02-08 15:13 | Outpatient (CLI) | payer OTHER | END 2022-02-08 15:14 | disposition home or self-care (01) | LOC: ULT 15:13 | PROVIDERS: ATTEND Nurse Practitioner Primary Care | DX: I82.411 Acute embolism and thrombosis of right femoral vein (principal) ==